=== PATIENT | male | born 1955 | race African-American/Black ===

== ENCOUNTER 2017-05-02 12:55 | Emergency (ER) | payer OTHER ==
[2017-05-02 13:17] VITALS: BP 128/77; PULSE 62; TEMP 97.8; BMI 26.9
--- NOTE | 2017-05-02 15:43 | PDOC ---
History of Present Illness - General Chief Complaint: Pain Stated Complaint: LT LEG PAIN Time Seen by Provider: 05/02/17 15:25 - History of Present Illness Initial Comments: 05/02/17 15:43 CHIEF COMPLAINT: leg pain HISTORY OF PRESENT ILLNESS: 62 yo M with hx of asthma presents to fast [employer] with sudden onset left leg pain since this morning. Patient reports he was on the treadmill for 45 minutes last night per his usual routine of going to the gym at least 3 times weekly. He woke up this morning with no pain to his leg, but when he stood up on the train today he felt pain to the front of his left galvan as well as to the back of his knee. He denies any trauma or recent injury. He denies any recent surgery but reports that he had surgery to his left leg "when I was a small child" after a fall. He denies limited ROM and states that he can bear weight. PAST MEDICAL HISTORY: Denies past medical history FAMILY HISTORY: Denies SOCIAL HISTORY: Denies tobacco, alcohol, illicit drug use. SURGICAL HISTORY: Denies ALLERGIES: No known drug allergies REVIEW OF SYSTEMS General/Constitutional: Denies fever or chills. Denies weakness, weight change. HEENT: Denies change in vision. Denies ear pain or discharge. Denies sore throat. Cardiovascular: Denies chest pain or shortness of breath. Respiratory: Denies cough, wheezing, or hemoptysis. Gastrointestinal: Denies nausea, vomiting, diarrhea or constipation. Denies rectal bleeding. Genitourinary: Denies dysuria, frequency, or change in urination. Musculoskeletal: L leg pain. Skin and breasts: Denies rash or easy bruising. PHYSICAL EXAM General Appearance: Well-appearing, appropriately dressed. No apparent distress , no intoxication. HEENT: EOMI, PERRLA, normal ENT inspection, normal voice, TMs normal, pharynx normal. No conjunctival pallor. No photophobia, scleral icterus. Respiratory/Chest: Lungs CTAB. Cardiovascular: RRR. S1, S2. Vascular Pulses: Dorsalis-Pedis (R): 2+, Dorsalis-Pedis (L): 2+ Musculoskeletal/Extremities: Mild edema to left lower leg when compared to right , tenderness on palpation to posterior knee. Normal inspection. FROM of all extremities, normal capillary refill. Pelvis Stable. No CVA tenderness. Integumentary: Appropriate color, dry, warm. No cyanosis, erythema, jaundice or rash Neurologic: project/production manager imaging II-XII intact. Fully oriented, alert. Appropriate mood/affect. Motor strength 5/5. No appreciable EOM palsy, facial droop or sensory deficit. 05/02/17 15:43 Past History - Past Medical History Allergies/Adverse Reactions: Allergies Allergy/AdvReac Type Severity Reaction Status Date / Time No Known Allergies Allergy Verified 05/02/17 13:13 Home Medications: Ambulatory Orders RX: Naproxen 250 mg PO BID #14 tablet 05/02/17 Anemia: No Asthma: No Cancer: Yes (PROSTATE) Cardiac Disorders: No CVA: No COPD: No CHF: No Dementia: No Diabetes: No GI Disorders: No Disorders: Yes (PROSTATE CANCER) HTN: No Hypercholesterolemia: No Liver Disease: No Seizures: No Thyroid Disease: No - Surgical History Abdominal Surgery: No Appendectomy: No Cardiac Surgery: No Cholecystectomy: No Lung Surgery: No Neurologic Surgery: No Orthopedic Surgery: No - Immunization History Immunization Up to Date: Yes - Suicide/Smoking/Psychosocial Hx Smoking History: Former smoker Have you smoked in the past 12 months: No Number of Cigarettes Smoked Daily: 0 If you are a former smoker, when did you quit?: 1979 Information on smoking cessation initiated: No Hx Alcohol Use: No Drug/Substance Use Hx: No Substance Use Type: Alcohol Hx Substance Use Treatment: No *Physical Exam - Vital Signs Last Vital Signs Temp Pulse Resp BP Pulse Ox 97.8 F 62 18 128/77 99 05/02/17 13:00 05/02/17 13:00 05/02/17 13:00 05/02/17 13:00 05/02/17 13:00 ED Treatment Course - RADIOLOGY Radiology Studies Ordered: Category Date Time Status DUPLEX VASCUL US-1 LEG [US] Stat Ultrasound 05/02/17 15:42 Ordered Medical Decision Making - Medical Decision Making 05/02/17 15:49 62 yo M with hx of asthma presents to [facility] with sudden onset left leg pain since this morning. -Ultrasound left leg 05/02/17 16:47 Ultrasound negative for DVT. -60 mg Toradol IM Advised patient to take medication as prescribed and follow up with orthopedics within the next two weeks for further evaluation of leg pain. Advised patient of signs and symptoms for return to ED. Patient verbalized understanding and agrees to plan. *DC/Admit/Observation/Transfer Diagnosis at time of Disposition: Leg pain Qualifiers: Laterality: left Qualified Code(s): M79.605 - Pain in left leg - Discharge Dispostion Disposition: HOME Condition at time of disposition: Stable Admit: No - Prescriptions Prescriptions: RX: Naproxen 250 mg PO BID #14 tablet - Referrals Referrals: Vadim Carnes MD [Primary Care Provider] - Jax Jewell MD [Staff Physician] - - Patient Instructions Printed Discharge Instructions: DI for Leg Pain, Medial Tibial Stress Syndrome Additional Instructions: Please take medication as prescribed. Follow up with orthopedics within the next two weeks for further evaluation. If you develop any new or worsening pain , inability to walk or bear weight on your leg, swelling of the leg, shortness of breath, chest pain, palpitations, or any new or worsening symptoms, please return to the ER.
[2017-05-02] MEDS ORDERED: KETOROLAC TROMETHAMINE 60 MG/2 ML VIAL IM ONE (16:45)
[2017-05-02] MEDS ORDERED: KETOROLAC TROMETHAMINE 60 MG/2 ML VIAL ONE (16:48)
== END 2017-05-02 17:09 | disposition home or self-care (01) ==
LOC: JERFT 12:55
PROC: 3E0333Z Introduction of Anti-inflammatory into Peripheral Vein, Percutaneous Approach (ICD-10-PCS; principal; 2017-05-02)
DX: M79.605 Pain in left leg (principal); J45.909 Unspecified asthma, uncomplicated
CPT/HCPCS: 93971-TC; 99281-25

== ENCOUNTER 2019-05-19 08:40 | Day surgery (SDC) | payer OTHER ==
[2019-05-18 14:35] VITALS: BMI 26.7
[2019-05-19 10:46] VITALS: TEMP 97.9
[2019-05-19 11:57] VITALS: BP 135/66; PULSE 71
--- NOTE | 2019-05-20 17:29 | PATH ---
Surgical Pathology Report Patient Name: NOAH MICHEL [facility]. Rec. #: [id number] /Age/Gender: 1955 (Age: 64) / M Account: [id number] Location: [facility]-ENDOSCOPY Taken: 05/19/2019 Received: 05/19/2019 Reported: 05/20/2019 Physicians: Dereck Damian D.O. Specimen(s) Received A: DESCENDING COLON POLYP B: RECTAL POLYP Clinical History Screening colonoscopy Postoperative diagnosis: Colon polyp, diverticulosis, rectal polyp Final Diagnosis A. DESCENDING COLON, POLYP, BIOPSY: POLYPOID COLONIC MUCOSA WITH SMALL LYMPHOID AGGREGATES. B. RECTAL POLYP, BIOPSY: HYPERPLASTIC POLYP. Electronically Signed Traci Bird M.D. Gross Description A. Received in formalin, labeled "descending colon polyp" are 2 cronin, irregular portions of soft tissue measuring 0.2 and 0.6 cm. in greatest dimension. The specimens are submitted in toto in one cassette. B. Received in formalin, labeled "rectal polyp" is a cronin, irregular portion of soft tissue measuring 0.3 cm. in greatest dimension. The specimen is submitted in toto in one cassette. MLSZ/05/19/2019 sanml/05/19/2019
== END 2019-05-19 11:45 | disposition home or self-care (01) ==
LOC: JASU-ENDO 08:40
PROVIDERS: ATTEND Internal Medicine Gastroenterology
PROC: 0DBP8ZX Excision of Rectum, Via Natural or Artificial Opening Endoscopic, Diagnostic (ICD-10-PCS; 2019-05-19)
PROC: 0DBM8ZX Excision of Descending Colon, Via Natural or Artificial Opening Endoscopic, Diagnostic (ICD-10-PCS; principal; 2019-05-19 09:30)
DX: Z12.11 Encounter for screening for malignant neoplasm of colon (principal); D12.4 Benign neoplasm of descending colon; K63.5 Polyp of colon; K62.1 Rectal polyp; M19.90 Unspecified osteoarthritis, unspecified site; M54.5 Low back pain; E55.9 Vitamin D deficiency, unspecified; Z85.46 Personal history of malignant neoplasm of prostate; K57.30 Diverticulosis of large intestine without perforation or abscess without bleeding; K64.8 Other hemorrhoids
CPT/HCPCS: 88305-TC

== ENCOUNTER 2023-12-07 20:28 | Observation (INO) | payer OTHER ==
[2023-12-07 21:59] LABS: VENOUS BASE EXCESS -5.4 mmol/L (-2-2); VENOUS O2 SATURATION 62.4 % (70-80); VENOUS PCO2 43.3 mmHg (38-52); VENOUS PH 7.3 (7.310-7.410)
[2023-12-07 22:13] LABS: BASO % 0.5 % (0-2.0); EOS % 4.5 % (0-4.5); HEMATOCRIT 33.7 % (35.4-49); HEMOGLOBIN 11.2 GM/dL (11.7-16.9); LYMPH % 22.5 % (8-40); MCH 27.8 pg (25.7-33.7); MCHC 33.1 g/dl (32.0-35.9); MEAN CELL VOLUME 84.2 fl (80-96); MEAN PLT VOLUME 8.8 fl (7.5-11.1); MONO % 6.4 % (3.8-10.2); NEUT % 66.1 % (42.8-82.8); PLATELET COUNT 138 10^3/uL (134-434); RBC 4.01 M/mm3 (4.00-5.60); RDW 15.2 % (11.9-15.9); WHITE BLOOD COUNT 7.8 K/mm3 (4.0-10.0)
[2023-12-07 22:19] LABS: POTASSIUM 4.1 mmol/L (3.5-5.1)
[2023-12-07 22:21] LABS: ALBUMIN 3.2 g/dl (3.4-5.0); CALCIUM 8.7 mg/dL (8.5-10.1)
[2023-12-07 22:22] LABS: BLOOD UREA NITROGEN 30.9 mg/dL (7-18); INR 1.08 (0.83-1.09); PROTHROMBIN TIME (PATIENT) 12.2 SEC (9.7-13.0)
[2023-12-07 22:24] LABS: PHOSPHOROUS 2.6 mg/dL (2.5-4.9)
[2023-12-07 22:25] LABS: ACTIVATED PTT 25.9 SECONDS (25.2-36.5); CREATININE 1.3 mg/dL (0.55-1.3)
[2023-12-07 22:26] LABS: BILIRUBIN,TOTAL 0.2 mg/dL (0.2-1); TOT PROT 6.4 g/dl (6.4-8.2)
[2023-12-08] MEDS: LACTATED RINGERS SOLUTION 1000 ML INFUS.BAG IV ONE (00:48)
[2023-12-08 01:37] LABS: BASO % 0.7 % (0-2.0); HEMATOCRIT 31.6 % (35.4-49); HEMOGLOBIN 10.6 GM/dL (11.7-16.9); LYMPH % 25.3 % (8-40); MCHC 33.4 g/dl (32.0-35.9); MEAN CELL VOLUME 83.8 fl (80-96); MEAN PLT VOLUME 8.5 fl (7.5-11.1); MONO % 8.1 % (3.8-10.2); NEUT % 60.9 % (42.8-82.8); PLATELET COUNT 131 10^3/uL (134-434); RBC 3.77 M/mm3 (4.00-5.60); RDW 15.2 % (11.9-15.9); WHITE BLOOD COUNT 7.6 K/mm3 (4.0-10.0)
[2023-12-08 03:33] VITALS: BMI 23.6
[2023-12-08 07:23] LABS: POTASSIUM 4.3 mmol/L (3.5-5.1)
[2023-12-08 07:33] LABS: ALBUMIN 2.7 g/dl (3.4-5.0); BLOOD UREA NITROGEN 25.6 mg/dL (7-18); CALCIUM 8.5 mg/dL (8.5-10.1)
[2023-12-08 07:36] LABS: CREATININE 1.1 mg/dL (0.55-1.3); TOT PROT 5.7 g/dl (6.4-8.2)
[2023-12-08 07:37] LABS: BILIRUBIN,TOTAL 0.5 mg/dL (0.2-1)
[2023-12-08 07:39] LABS: BASO % 0.4 % (0-2.0); EOS % 5.5 % (0-4.5); HEMATOCRIT 30.8 % (35.4-49); HEMOGLOBIN 10.2 GM/dL (11.7-16.9); LYMPH % 28.4 % (8-40); MCH 28.1 pg (25.7-33.7); MCHC 33.2 g/dl (32.0-35.9); MEAN CELL VOLUME 84.6 fl (80-96); MEAN PLT VOLUME 8.8 fl (7.5-11.1); MONO % 7.6 % (3.8-10.2); NEUT % 58.1 % (42.8-82.8); PLATELET COUNT 129 10^3/uL (134-434); RBC 3.65 M/mm3 (4.00-5.60); RDW 15.3 % (11.9-15.9); WHITE BLOOD COUNT 6.5 K/mm3 (4.0-10.0)
[2023-12-08] MEDS: PANTOPRAZOLE SODIUM 40 MG VIAL IVPUSH SCH (09:24)
[2023-12-08] MEDS: LACTATED RINGERS SOLUTION 1,000 ML/1,000 ML INFUS.BAG IV SCH (11:33)
[2023-12-08 16:38] LABS: BASO % 0.5 % (0-2.0); EOS % 5.1 % (0-4.5); HEMATOCRIT 32.3 % (35.4-49); HEMOGLOBIN 10.6 GM/dL (11.7-16.9); LYMPH % 23.4 % (8-40); MCH 27.5 pg (25.7-33.7); MCHC 32.7 g/dl (32.0-35.9); MEAN CELL VOLUME 83.9 fl (80-96); MEAN PLT VOLUME 8.5 fl (7.5-11.1); MONO % 8.9 % (3.8-10.2); NEUT % 62.1 % (42.8-82.8); PLATELET COUNT 129 10^3/uL (134-434); RBC 3.85 M/mm3 (4.00-5.60); RDW 15.6 % (11.9-15.9); WHITE BLOOD COUNT 6.3 K/mm3 (4.0-10.0)
[2023-12-08] MEDS: LATANOPROST 0.005% OPHTH SOLN 2.5ML BOTTLE OU SCH (21:52)
[2023-12-08] MEDS: BUDESONIDE/FORMETEROL FUMARATE 80/4.5 mcg INHALER IH SCH (21:52)
[2023-12-09 06:53] LABS: HEMATOCRIT 32.3 % (35.4-49); HEMOGLOBIN 10.5 GM/dL (11.7-16.9); MCH 27.4 pg (25.7-33.7); MCHC 32.4 g/dl (32.0-35.9); MEAN CELL VOLUME 84.6 fl (80-96); MEAN PLT VOLUME 8.7 fl (7.5-11.1); PLATELET COUNT 137 10^3/uL (134-434); RBC 3.83 M/mm3 (4.00-5.60); RDW 15.1 % (11.9-15.9); WHITE BLOOD COUNT 4.9 K/mm3 (4.0-10.0)
[2023-12-09 07:08] LABS: POTASSIUM 4.3 mmol/L (3.5-5.1)
[2023-12-09 07:12] LABS: ALBUMIN 2.9 g/dl (3.4-5.0)
[2023-12-09 07:13] LABS: CALCIUM 8.7 mg/dL (8.5-10.1)
[2023-12-09 07:16] LABS: CREATININE 1.1 mg/dL (0.55-1.3)
[2023-12-09 07:18] LABS: BILIRUBIN,TOTAL 0.4 mg/dL (0.2-1); TOT PROT 5.8 g/dl (6.4-8.2)
[2023-12-10 06:46] LABS: BASO % 0.3 % (0-2.0); EOS % 3.5 % (0-4.5); HEMATOCRIT 34.6 % (35.4-49); HEMOGLOBIN 11.2 GM/dL (11.7-16.9); LYMPH % 19.9 % (8-40); MCH 27.3 pg (25.7-33.7); MCHC 32.3 g/dl (32.0-35.9); MEAN CELL VOLUME 84.6 fl (80-96); MEAN PLT VOLUME 8.7 fl (7.5-11.1); MONO % 7.4 % (3.8-10.2); NEUT % 68.9 % (42.8-82.8); PLATELET COUNT 146 10^3/uL (134-434); RBC 4.09 M/mm3 (4.00-5.60); RDW 15.5 % (11.9-15.9); WHITE BLOOD COUNT 5.5 K/mm3 (4.0-10.0)
[2023-12-10 07:01] LABS: POTASSIUM 4.1 mmol/L (3.5-5.1)
[2023-12-10 07:05] LABS: BLOOD UREA NITROGEN 16.5 mg/dL (7-18)
[2023-12-10 07:06] LABS: CALCIUM 8.6 mg/dL (8.5-10.1)
[2023-12-10 07:07] LABS: CREATININE 1.1 mg/dL (0.55-1.3)
[2023-12-11 06:44] LABS: BASO % 0.3 % (0-2.0); HEMATOCRIT 31.6 % (35.4-49); HEMOGLOBIN 10.6 GM/dL (11.7-16.9); LYMPH % 26.2 % (8-40); MCH 28.2 pg (25.7-33.7); MCHC 33.6 g/dl (32.0-35.9); MEAN CELL VOLUME 83.8 fl (80-96); MEAN PLT VOLUME 8.3 fl (7.5-11.1); MONO % 8.3 % (3.8-10.2); NEUT % 61.2 % (42.8-82.8); PLATELET COUNT 159 10^3/uL (134-434); RBC 3.78 M/mm3 (4.00-5.60); RDW 15.1 % (11.9-15.9); WHITE BLOOD COUNT 4.7 K/mm3 (4.0-10.0)
[2023-12-11 07:00] LABS: POTASSIUM 4.2 mmol/L (3.5-5.1)
[2023-12-11 07:03] LABS: CALCIUM 8.4 mg/dL (8.5-10.1)
[2023-12-11 07:04] LABS: ALBUMIN 2.7 g/dl (3.4-5.0); BLOOD UREA NITROGEN 16.6 mg/dL (7-18); MAGNESIUM 1.9 mg/dL (1.8-2.4)
[2023-12-11 07:06] LABS: CREATININE 1.1 mg/dL (0.55-1.3); PHOSPHOROUS 3.6 mg/dL (2.5-4.9)
[2023-12-11 07:08] LABS: BILIRUBIN,TOTAL 0.5 mg/dL (0.2-1); TOT PROT 5.9 g/dl (6.4-8.2)
[2023-12-11 14:46] LABS: HEMATOCRIT 31.8 % (35.4-49); HEMOGLOBIN 10.6 GM/dL (11.7-16.9); MCH 27.7 pg (25.7-33.7); MCHC 33.1 g/dl (32.0-35.9); MEAN CELL VOLUME 83.6 fl (80-96); MEAN PLT VOLUME 7.9 fl (7.5-11.1); PLATELET COUNT 156 10^3/uL (134-434); RBC 3.81 M/mm3 (4.00-5.60); RDW 15.2 % (11.9-15.9); WHITE BLOOD COUNT 6.3 K/mm3 (4.0-10.0)
[2023-12-12 06:38] LABS: BASO % 0.4 % (0-2.0); EOS % 3.3 % (0-4.5); HEMATOCRIT 33.9 % (35.4-49); HEMOGLOBIN 11.4 GM/dL (11.7-16.9); LYMPH % 21.8 % (8-40); MCH 28.2 pg (25.7-33.7); MCHC 33.7 g/dl (32.0-35.9); MEAN CELL VOLUME 83.6 fl (80-96); MEAN PLT VOLUME 8.3 fl (7.5-11.1); MONO % 9.2 % (3.8-10.2); NEUT % 65.3 % (42.8-82.8); PLATELET COUNT 169 10^3/uL (134-434); RBC 4.06 M/mm3 (4.00-5.60)
[2023-12-12 06:45] LABS: POTASSIUM 3.9 mmol/L (3.5-5.1)
[2023-12-12 06:50] LABS: CALCIUM 8.7 mg/dL (8.5-10.1)
[2023-12-12 06:51] LABS: BLOOD UREA NITROGEN 14.8 mg/dL (7-18); MAGNESIUM 1.9 mg/dL (1.8-2.4)
[2023-12-12 06:53] LABS: PHOSPHOROUS 3.2 mg/dL (2.5-4.9); TOT PROT 6.2 g/dl (6.4-8.2)
[2023-12-12 06:54] LABS: CREATININE 1.2 mg/dL (0.55-1.3)
[2023-12-12 06:55] LABS: BILIRUBIN,TOTAL 0.4 mg/dL (0.2-1)
[2023-12-13 06:42] LABS: BASO % 0.7 % (0-2.0); EOS % 4.9 % (0-4.5); HEMATOCRIT 33.4 % (35.4-49); LYMPH % 24.9 % (8-40); MCH 27.6 pg (25.7-33.7); MEAN CELL VOLUME 83.6 fl (80-96); MEAN PLT VOLUME 8.2 fl (7.5-11.1); MONO % 10.1 % (3.8-10.2); NEUT % 59.4 % (42.8-82.8); PLATELET COUNT 173 10^3/uL (134-434); RBC 3.99 M/mm3 (4.00-5.60); RDW 15.6 % (11.9-15.9); WHITE BLOOD COUNT 5.1 K/mm3 (4.0-10.0)
[2023-12-13 06:59] LABS: POTASSIUM 4.1 mmol/L (3.5-5.1)
[2023-12-13 07:01] LABS: CALCIUM 8.7 mg/dL (8.5-10.1)
[2023-12-13 07:02] LABS: ALBUMIN 2.8 g/dl (3.4-5.0); BLOOD UREA NITROGEN 14.6 mg/dL (7-18)
[2023-12-13 07:04] LABS: CREATININE 1.3 mg/dL (0.55-1.3)
[2023-12-13 07:06] LABS: BILIRUBIN,TOTAL 0.5 mg/dL (0.2-1)
[2023-12-13 17:53] VITALS: RESP 16; TEMP 97.9
[2023-12-13 21:06] VITALS: BP 115/68; PULSE 81
== END 2023-12-14 00:30 | disposition short-term general hospital (02) ==
LOC: JER 20:28 → JERBED 12-08 02:14 → J2W 12-08 03:23
PROVIDERS: ADMIT Internal Medicine; ATTEND Internal Medicine
PROC: 3E0337Z Introduction of Electrolytic and Water Balance Substance into Peripheral Vein, Percutaneous Approach (ICD-10-PCS; principal; 2023-12-08)
PROC: 3E033GC Introduction of Other Therapeutic Substance into Peripheral Vein, Percutaneous Approach (ICD-10-PCS; 2023-12-08)
PROC: 0DB68ZX Excision of Stomach, Via Natural or Artificial Opening Endoscopic, Diagnostic (ICD-10-PCS; 2023-12-08)
DX: K31.89 Other diseases of stomach and duodenum (principal); K29.70 Gastritis, unspecified, without bleeding; K25.9 Gastric ulcer, unspecified as acute or chronic, without hemorrhage or perforation; D64.9 Anemia, unspecified; R77.8 Other specified abnormalities of plasma proteins; Z85.46 Personal history of malignant neoplasm of prostate; Z87.891 Personal history of nicotine dependence
CPT/HCPCS: 0241U-QW; 36415; 71046-TC-FY; 71275-TC; 74177-TC; 80048; 80053; 80061; 82272; 82378; 82728; 82803; 83036; 83540; 83550; 83735; 84100; 84443; 84466; 84484; 85025; 85027; 85045; 85379; 85610; 85730; 86301; 86850; 86900; 86901; 86922; 88305-TC; 88341-TC; 88342-TC; 93005; 93010; 93306-TC; 96361; 96374; 99285-25; G0378; Q9967